=== PATIENT | female | born 1995 | race African-American/Black ===

== ENCOUNTER 2016-09-22 06:56 | Observation (INO) | payer MEDICAID, OTHER ==
[2016-09-22] MEDS ORDERED: IV RINGERS,LACTATED 1000ML 1,000 ML IV SCH (07:40)
[2016-09-22 07:52] LABS: BILIRUBIN,URINE NEGATIVE (NEG); GLUCOSE,URINE NEGATIVE (NEG); NITRITE,URINE NEGATIVE (NEG); PH,URINE 7.5; PROTEIN,URINE NEGATIVE (NEG-TRACE); UROBILINOGEN,URINE 0.2 mg/dL (0.2 mg/dL)
[2016-09-22 08:03] LABS: BACTERIA,URINE FEW /HPF (0-FEW); RBC,URINE OCC /HPF (0-2)
[2016-09-22 08:04] LABS: SQUAMOUS EPITHELIAL CELL,UR MOD /LPF
== END 2016-09-22 09:15 | disposition home or self-care (01) ==
LOC: 3 SO LND 06:56
PROVIDERS: ADMIT Obstetrics & Gynecology; ATTEND Obstetrics & Gynecology
DX: O26.893 Other specified pregnancy related conditions, third trimester (principal); R10.9 Unspecified abdominal pain; M54.9 Dorsalgia, unspecified; Z3A.00 Weeks of gestation of pregnancy not specified
CPT/HCPCS: 81001; 87086; G0378; G0379

== ENCOUNTER 2016-10-24 18:21 | Observation (INO) | payer OTHER ==
[2016-10-24 19:14] LABS: BILIRUBIN,URINE NEGATIVE (NEG); GLUCOSE,URINE NEGATIVE (NEG); NITRITE,URINE NEGATIVE (NEG); PH,URINE 6.5; PROTEIN,URINE NEGATIVE (NEG-TRACE); UROBILINOGEN,URINE 0.2 mg/dL (0.2 mg/dL)
[2016-10-24 19:20] LABS: BARBITURATES POS (NEG); BENZODIAZEPINES NEG (NEG); CANNABINOIDS NEG (NEG); COCAINE NEG (NEG); METHADONE NEG (NEG); OPIATES NEG (NEG); PHENCYCLIDINE NEG (NEG)
[2016-10-24 19:22] LABS: BACTERIA,URINE FEW /HPF (0-FEW); RBC,URINE 0 /HPF (0-2); SQUAMOUS EPITHELIAL CELL,UR MANY /LPF; WBC,URINE RARE /HPF (0-4)
== END 2016-10-24 20:15 | disposition home or self-care (01) ==
LOC: 3 SO LND 18:21
PROVIDERS: ADMIT Obstetrics & Gynecology; ATTEND Obstetrics & Gynecology
DX: O36.8130 Decreased fetal movements, third trimester, not applicable or unspecified (principal); Z3A.37 37 weeks gestation of pregnancy
CPT/HCPCS: 80307; 81001; G0378; G0379; 87086; G0479

== ENCOUNTER 2016-11-08 18:40 | Inpatient (IN) | payer OTHER ==
[~2016-11-08] VITALS: Ht 157.5 cm; Wt 106.1 kg
[2016-11-08] MEDS ORDERED: diphenhydrAMINE HCL 25 MG CAPSULE PO PRN (19:15)
[2016-11-08] MEDS ORDERED: LIDOCAINE 1% PF 30 ML VIAL. INJ PRN (19:15)
[2016-11-08] MEDS ORDERED: BUTORPHANOL 2 MG/ML VIAL. IV PRN (19:15)
[2016-11-08] MEDS ORDERED: OXYTOCIN 30 UNIT/500 ML PREMIX 500 ML IV PRN (19:15)
[2016-11-08] MEDS ORDERED: TERBUTALINE 1 MG/ML VIAL. SQ PRN (19:15)
[2016-11-08] MEDS ORDERED: ONDANSETRON PF 4 MG/2 ML VIAL. IV PRN (19:15)
[2016-11-08] MEDS ORDERED: fentaNYL PF VIAL 100 MCG/2 ML VIAL IV PRN (19:15)
[2016-11-08] MEDS ORDERED: 0.9 % SODIUM CHLORIDE 10 ML DISP.SYRIN. IV PRN (19:15)
[2016-11-08 19:24] VITALS: BP 131/73
[2016-11-08] MEDS: IV RINGERS,LACTATED 1000ML 1,000 ML IV SCH (19:25)
[2016-11-08 19:29] LABS: HEMATOCRIT 33.9 % (36.0-47.0); HEMOGLOBIN 10.9 g/dL (12.0-15.5); RED BLOOD COUNT 3.96 x10^6/uL (3.50-5.40); RED CELL DISTRIBUTION WIDTH 13.9 % (11.5-14.5); WHITE BLOOD COUNT 10.8 x10^3/uL (4.0-11.0)
[2016-11-08] MEDS ORDERED: PNEUMOCOCCAL VAX SCREEN BY RX. MC ONE (19:30)
[2016-11-08] MEDS ORDERED: DINOPROSTONE 10 MG SUPP.VAG VG ONE (19:30)
[2016-11-08] MEDS ORDERED: INFLUENZA VAX SCREEN BY RX. MC ONE (19:30)
[2016-11-08 20:17] LABS: BILIRUBIN,URINE NEGATIVE (NEG); GLUCOSE,URINE NEGATIVE (NEG); NITRITE,URINE NEGATIVE (NEG); PH,URINE 6.5; PROTEIN,URINE NEGATIVE (NEG-TRACE); UROBILINOGEN,URINE 0.2 mg/dL (0.2 mg/dL)
[2016-11-08 20:25] LABS: BARBITURATES POS (NEG); BENZODIAZEPINES NEG (NEG); CANNABINOIDS NEG (NEG); COCAINE NEG (NEG); METHADONE NEG (NEG); OPIATES NEG (NEG); PHENCYCLIDINE NEG (NEG)
[2016-11-08 20:33] LABS: BACTERIA,URINE MANY /HPF (0-FEW); RBC,URINE 0 /HPF (0-2); SQUAMOUS EPITHELIAL CELL,UR MANY /LPF
[2016-11-09] MEDS: IV RINGERS,LACTATED 1000ML 1,000 ML IV SCH ×2 (05:41→13:44)
--- NOTE | 2016-11-09 08:12 | PDOC1 ---
OB - History Hx of Present Care: Good Care Ultrasounds: Normal mid trimester US Obstetrical Complications: None Medical Complications: None Past Family/Social History * Past Medical, Surgical, Family and Obstetric Histories reviewed from chart. Rubella: Immune RPR/VDRL: Negative GBS Status: Negative HBsAG: Negative OB - Chief Complaint & HPI Date of Admission: Date of Admission: Nov 08, 2016 at 18:40 Chief Complaint/History : 1 Para: 0 EGA: 39 Reason for admission: induction of labor Indication for induction: maternal discomfort Admission Nurse Assessment Rev: Yes Problems: OB - Admission Exam Physical Exam Vitals: VS - Last 72 Hours, by Label Date Time Temp Pulse Resp B/P (MAP) Pulse Ox O2 Delivery O2 Flow Rate FiO2 11/09/16 07:31 18 Room Air 11/08/16 19:24 98.3 110 18 131/73 (92) Room Air 98.3 HEENT: Normal Heart: Regular Rate Lungs: Clear Abdomen: Gravid, Non tender, Soft Extremities: Edema Reflexes: Normal Cervical Dilatation: 1cm Effacement: 50% Station: -3 Membranes: Intact Heart Rate: Normal Accelerations: Accelerations Present Decelerations: No decelerations Contractions on Admission: >10 Minutes Apart Intensity: Mild Text A: 39 wks IUP IOL secondary maternal discomforts of P: Admit for cervidil overnight, then pitocin in am. CASE SHAW Jr, MD Nov 09, 2016 08:11
[2016-11-09] MEDS ORDERED: FLU VACC QS2017-18 (36MOS+)/PF 0.5 ML SYRINGE. VAX IM ONE (09:00)
[2016-11-09] MEDS ORDERED: PNEUMOC CONJ VACC 23-VALENT 0.5 ML VIAL. VAX IM ONE (09:00)
[2016-11-09] MEDS ORDERED: DINOPROSTONE 10 MG SUPP.VAG VG ONE (20:00)
[2016-11-09] MEDS: ACETAMINOPHEN 500 MG TABLET PO PRN (21:20)
[2016-11-10] MEDS ORDERED: OXYTOCIN 30 UNIT/500 ML PREMIX 500 ML IV PRN (05:00)
[2016-11-10 05:23] LABS: RPR REFLEX Non Reactive (Non Reactive)
[2016-11-10] MEDS: IV RINGERS,LACTATED 1000ML 1,000 ML IV SCH ×4 (05:52→19:19)
[2016-11-10] MEDS: OXYTOCIN 30 UNIT/500 ML PREMIX 500 ML IV PRN (05:53)
[2016-11-10] MEDS ORDERED: LIDOCAINE 2% PF Vial for OR 5 ML VIAL. ONE (14:48)
[2016-11-10] MEDS ORDERED: L&D EPIDURAL CASSETTE 100 ML EP ONE ×2 (15:37→21:18)
[2016-11-10] MEDS ORDERED: ePHEDrine PF IN SALINE 50 MG/5 ML DISP.SYRIN IV PRN (16:00)
[2016-11-10] MEDS ORDERED: ROPIVacaine 0.2% PF 10 ML VIAL. EPI ONE (16:00)
[2016-11-10] MEDS ORDERED: fentaNYL PF VIAL 100 MCG/2 ML VIAL EPI ONE (16:00)
[2016-11-10] MEDS ORDERED: NALOXONE 0.4 MG/ML VIAL. IV PRN (16:00)
[2016-11-10] MEDS ORDERED: ONDANSETRON PF 4 MG/2 ML VIAL. IV PRN (16:00)
--- NOTE | 2016-11-10 18:33 | PDOC ---
OB Progress Note Date of Service 11/10/16 Time of Evaluation 1830 Notes Pt. feeling well. SHe had pitocin yesterday and cervidil last night. Today, patient was started on pitocin in am. She had SROM consisting of clear fluid. Lab Laboratory Tests Test 11/08/16 19:17 11/08/16 20:00 White Blood Count 10.8 x10^3/uL (4.0-11.0) Red Blood Count 3.96 x10^6/uL (3.50-5.40) Hemoglobin 10.9 g/dL (12.0-15.5) Hematocrit 33.9 % (36.0-47.0) Mean Corpuscular Volume 86 fL (79-100) Mean Corpuscular Hemoglobin 28 pg (25-35) Mean Corpuscular Hemoglobin Concent 32 g/dL (31-37) Red Cell Distribution Width 13.9 % (11.5-14.5) Platelet Count 219 x10^3/uL (140-400) RPR Titer Additional Testing Non reactive (Non Reactive) Urine Collection Type Unknown Urine Color Yellow Urine Clarity Cloudy Urine pH 6.5 Urine Specific [place] 1.020 Urine Protein Negative mg/dL (NEG-TRACE) Urine Glucose (UA) Negative mg/dL (NEG) Urine Ketones (Stick) Negative mg/dL (NEG) Urine Blood Negative (NEG) Urine Nitrite Negative (NEG) Urine Bilirubin Negative (NEG) Urine Urobilinogen Dipstick 0.2 mg/dL (0.2 mg/dL) Urine Leukocyte Esterase Moderate (NEG) Urine RBC 0 /HPF (0-2) Urine WBC 1-4 /HPF (0-4) Urine Squamous Epithelial Cells Many /LPF Urine Bacteria Many /HPF (0-FEW) Urine Opiates Screen Neg (NEG) Urine Methadone Screen Neg (NEG) Urine Barbiturates Pos (NEG) Urine Phencyclidine Screen Neg (NEG) Urine Amphetamine/Methamphetamine Neg (NEG) Urine Benzodiazepines Screen Neg (NEG) Urine Cocaine Screen Neg (NEG) Urine Cannabinoids Screen Neg (NEG) Urine Ethyl Alcohol Neg (NEG) Medications Current Medications Sodium Chloride (Normal Saline Flush) 3 ml QSHIFT PRN IV AFTER MEDS AND BLOOD DRAWS; Start 11/08/16 at 19:15 Ringer's Solution 1,000 ml @ 125 mls/hr Q8H IV Last administered on 11/10/16 15:21; Start 11/08/16 at 19:08 Butorphanol Tartrate (Stadol) 2 mg PRN Q1HR PRN IV Severe labor pain Last administered on 11/10/16 13:00; Start 11/08/16 at 19:15 Fentanyl Citrate (Fentanyl 2ml Vial) 100 mcg PRN Q30MIN PRN IV Severe pain Last administered on 11/09/16 07:31; Start 11/08/16 at 19:15 Ondansetron HCl (Zofran) 4 mg PRN Q4HRS PRN IV NAUSEA/VOMITING; Start 11/08/16 at 19:15 Terbutaline Sulfate (Brethine) 0.25 mg 1X PRN PRN SQ SEE COMMENTS; Start at 19:15; Stop 11/09/16 at 19:14; Status DC Lidocaine HCl 30 ml 1X PRN PRN INJ SEE COMMENTS; Start 11/08/16 at 19:15; Stop 11/10/16 at 19:14 Oxytocin/Sodium Chloride 500 ml @ 0 mls/hr CONT PRN IV SEE I/O RECORD Last administered on 11/10/16 05:53; Start 11/09/16 at 06:00 Oxytocin/Sodium Chloride 500 ml @ 0 mls/hr CONT PRN PRN IV Post delivery bleeding; Start 11/08/16 at 19:15 Ibuprofen (Motrin) 600 mg PRN Q6HRS PRN PO PAIN; Start 11/08/16 at 19:15 Diphenhydramine HCl (Benadryl) 50 mg PRN QHS PRN PO INSOMNIA Last administered on 11/08/16 20:54; Start 11/08/16 at 19:15 Dinoprostone (Cervidil) 10 mg 1X ONCE VG Last administered on 11/08/16 19:38 ; Start 11/08/16 at 19:30; Stop 11/08/16 at 19:31; Status DC Info (Do NOT chart on this placeholder) 1 each 1X ONCE MC ; Start 11/08/16 at 19:30; Stop 11/08/16 at 19:31; Status UNV Pneumococcal Polyvalent Vaccine (Do NOT chart on this placeholder) 1 each 1X ONCE MC ; Start 11/08/16 at 19:30; Stop 11/08/16 at 19:31; Status UNV Influenza Virus Vaccine Quadrival (Fluarix Quad [id number] Syringe) 0.5 ml ONCE ONCE VAX IM ; Start 11/09/16 at 09:00; Stop 11/09/16 at 09:01; Status DC Pneumococcal Polyvalent Vaccine (Pneumovax 23) 0.5 ml ONCE ONCE VAX IM ; Start 11/09/16 at 09:00; Stop 11/09/16 at 09:01; Status DC Dinoprostone (Cervidil) 10 mg 1X ONCE VG Last administered on 11/09/16 20:22 ; Start 11/09/16 at 20:00; Stop 11/09/16 at 20:01; Status DC Oxytocin/Sodium Chloride 500 ml @ 0 mls/hr CONT PRN IV SEE I/O RECORD; Start at 05:00 Acetaminophen (Tylenol) 1,000 mg PRN Q6HRS PRN PO MILD PAIN / TEMP Last administered on 11/09/16 21:20; Start 11/09/16 at 21:00 Lidocaine HCl (Lidocaine Pf 2% Vial) 5 ml STK-MED ONCE .ROUTE ; Start 11/10/16 at 14:48; Stop 11/10/16 at 14:49; Status DC Ropivacaine/ Fentanyl/NS 100 ml @ As Directed STK-MED ONCE EP ; Start 11/10/16 at 15:37; Stop 11/10/16 at 15:38; Status DC Ephedrine Sulfate 10 mg PRN Q2MIN PRN IV IF SBP<90; Start 11/10/16 at 16:00 Naloxone HCl (Narcan) 0.04 mg PRN Q1MIN PRN IV SEE COMMENTS; Start 11/10/16 at 16:00 Fentanyl Citrate (Fentanyl 2ml Vial) 100 mcg 1X ONCE EPI ; Start 11/10/16 at 16 :00; Stop 11/10/16 at 16:01; Status DC Ondansetron HCl (Zofran) 4 mg PRN Q6HRS PRN IV NAUSEA/VOMITING; Start 11/10/16 at 16:00 Ropivacaine (Naropin 0.2%) 20 ml 1X ONCE EPI ; Start 11/10/16 at 16:00; Stop at 16:01; Status DC Exam Abd: soft, non tender, fundus non tender Pelvic: 2/90/-2 IUPC placed without difficulty. Pitocin at 18 milliUnits/min. Assessment 39 wks IUP IOL secondary maternal discomforts Plan of Care: Continue current Tx, Mgmt CASE SHAW Jr, MD Nov 10, 2016 18:33
[2016-11-10] MEDS: L&D EPIDURAL CASSETTE 100 ML EP PRN (21:20)
[2016-11-10] MEDS ORDERED: NORMAL SALINE IV SCH (22:00)
[2016-11-10] MEDS ORDERED: AMPICILLIN SODIUM 2 GM in IV NORMAL SALINE 100ML 100 ML IV ONE (22:00)
[2016-11-10] MEDS ORDERED: GENTAMICIN SULFATE IV SCH (22:00)
[2016-11-11] MEDS: GENTAMICIN PER PHARMACY. MC PRN ×3 (02:00→17:00)
[2016-11-11] MEDS: OXYTOCIN 30 UNIT/500 ML PREMIX 500 ML IV PRN ×3 (02:07→19:26)
[2016-11-11] MEDS: AMPICILLIN SODIUM 1 GM in IV NORMAL SALINE 50ML 50 ML IV SCH ×3 (02:07→10:13)
[2016-11-11] MEDS: IV RINGERS,LACTATED 1000ML 1,000 ML IV SCH (03:34)
[2016-11-11] MEDS ORDERED: L&D EPIDURAL CASSETTE 100 ML EP ONE (04:01)
[2016-11-11] MEDS: L&D EPIDURAL CASSETTE 100 ML EP PRN ×2 (04:13→09:04)
[2016-11-11] MEDS ORDERED: IV RINGERS,LACTATED 1000ML 1,000 ML IV SCH ×2 (07:08→07:17)
[2016-11-11] MEDS ORDERED: NALOXONE 0.4 MG/ML VIAL. IV PRN ×2 (07:15→07:30)
[2016-11-11] MEDS ORDERED: ROPIVacaine 0.2% IN 0.9%NACL PF 40 MG/20 ML DISP.SYRIN. EPI PRN ×2 (07:15→07:30)
[2016-11-11] MEDS ORDERED: ePHEDrine PF IN SALINE 50 MG/5 ML DISP.SYRIN IV PRN (07:15)
[2016-11-11] MEDS ORDERED: fentaNYL PF VIAL 100 MCG/2 ML VIAL EPI PRN (07:30)
[2016-11-11] MEDS ORDERED: BUPIVACAINE MPF 0.25% 10 ML VIAL. EPI PRN (07:30)
[2016-11-11] MEDS ORDERED: L&D EPIDURAL CASSETTE 100 ML EP PRN (07:30)
--- NOTE | 2016-11-11 14:29 | PDOC ---
VAGINAL DELIVERY DATE DATE: 11/11/16 TIME: 14:26 : 1 Para: 1 EGA: 39 VAGINAL DELIVERY: VTX VACCUM ASSISTED: Yes NUMBER OF PULLS 5 NUMBER OF POP OFFS none MAXIMUM PRESSURE 600 mmhg PLACENTA: Spontaneous pending SEX: Male WEIGHT Weight [pending ] Nuchal Cord: Yes, Times 1 Amniotic Fluid: Clear PAIN: Epidural EPISIOTOMY: No EXTENSION: Yes (Left vaginal sidewall laceration) REPAIRED WITH 2-0 vicryl EBL 300 ml COMPLICATIONS none CONDITION pt. stable Signs of Intrauterine Infectio: Temp >100.4, Uterine tenderness Shoulder Dystocia: No, Katherine Maneuver, Suprapubic Pressure Problems: CASE SHAW Jr, MD Nov 11, 2016 14:29
[2016-11-11] MEDS ORDERED: NORMAL SALINE IV SCH (14:30)
[2016-11-11] MEDS ORDERED: ZOLPIDEM 5 MG TABLET. PO PRN (14:30)
[2016-11-11] MEDS ORDERED: GENTAMICIN SULFATE IV SCH (14:30)
[2016-11-11] MEDS ORDERED: diphenhydrAMINE ORAL ELIXIR 12.5 MG/5 ML ML PO PRN (14:30)
[2016-11-11] MEDS ORDERED: KETOROLAC 30 MG/ML INJ. IV PRN (14:30)
[2016-11-11] MEDS ORDERED: MAG HYDROX/ALUMINUM HYD/SIMETH 30 ML ORAL.SUSP PO PRN (14:30)
[2016-11-11] MEDS ORDERED: OXYTOCIN 30 UNIT/500 ML PREMIX 500 ML IV PRN (14:30)
[2016-11-11] MEDS ORDERED: 0.9 % SODIUM CHLORIDE 10 ML DISP.SYRIN. IV PRN (14:30)
[2016-11-11] MEDS ORDERED: ONDANSETRON PF 4 MG/2 ML VIAL. IV PRN (14:30)
[2016-11-11] MEDS: IBUPROFEN 600 MG TABLET. PO PRN (14:48)
[2016-11-11] MEDS ORDERED: AMPICILLIN SODIUM 2 GM in IV NORMAL SALINE 100ML 100 ML IV SCH (16:00)
[2016-11-11 16:37] VITALS: BP 112/68
[2016-11-11] MEDS: oxyCODONE/APAP 5/325 1 TAB TABLET PO PRN ×3 (16:42→21:05)
[2016-11-11 17:25] VITALS: BP 136/93
[2016-11-11] MEDS ORDERED: miSOPROStol 200MCG TAB 200 MCG TABLET VG ONE (17:30)
[2016-11-11 18:00] VITALS: BP 127/82
[2016-11-11 18:31] VITALS: BP 115/76
[2016-11-11] MEDS: IBUPROFEN 800 MG TABLET. PO PRN (21:04)
[2016-11-11 22:00] VITALS: BP 119/74
[2016-11-11] MEDS ORDERED: GENTAMICIN SULFATE 80 MG in IV NORMAL SALINE 100ML 100 ML IV SCH (22:00)
[2016-11-12] MEDS ORDERED: BENZOCAINE 20% TOPICAL AEROSOL SPRAY 57GM CAN. TP PRN (00:45)
[2016-11-12 00:54] VITALS: BP 104/63
[2016-11-12] MEDS: AMPICILLIN SODIUM 2 GM in IV NORMAL SALINE 100ML 100 ML IV SCH ×5 (04:14→21:15)
[2016-11-12] MEDS: oxyCODONE/APAP 5/325 1 TAB TABLET PO PRN ×5 (04:30→23:52)
[2016-11-12] MEDS: DOCUSATE SODIUM 100 MG CAPSULE. PO PRN (04:30)
[2016-11-12] MEDS: IBUPROFEN 800 MG TABLET. PO PRN ×3 (04:30→21:15)
[2016-11-12] MEDS: NORMAL SALINE IV SCH (04:52)
[2016-11-12] MEDS: GENTAMICIN SULFATE IV SCH (04:52)
[2016-11-12 05:31] VITALS: BP 106/67
[2016-11-12 07:16] LABS: BASO % 0 % (0-3); EOS % 1 % (0-3); HEMATOCRIT 24.9 % (36.0-47.0); HEMOGLOBIN 8.1 g/dL (12.0-15.5); LYMPH # 2.5 x10^3/uL (1.0-4.8); LYMPH % 18 % (24-48); MEAN CORPUSCULAR HEMOGLOBIN 28 pg (25-35); MEAN CORPUSCULAR HGB CONC 33 g/dL (31-37); MEAN CORPUSCULAR VOLUME 85 fL (79-100); MONO % 8 % (0-9); NEUT % 72 % (31-73); PLATELET COUNT 177 x10^3/uL (140-400); RED BLOOD COUNT 2.93 x10^6/uL (3.50-5.40); WHITE BLOOD COUNT 13.7 x10^3/uL (4.0-11.0)
[2016-11-12] MEDS: FERROUS SULFATE 325 MG TABLET. PO SCH ×2 (08:52→19:29)
[2016-11-12 09:15] VITALS: BP 100/62
[2016-11-12] MEDS ORDERED: GENTAMICIN TROUGH LEVEL. MC ONE (15:00)
[2016-11-12] MEDS: SIMETHICONE 80 MG TAB.CHEW PO PRN ×2 (15:13→18:35)
[2016-11-12 15:24] LABS: GENT TR 1.2 mcg/mL (0.0-2.0)
[2016-11-12] MEDS ORDERED: DIPHTH,PERTUSS(ACELL),TET TOX 0.5 ML DISP.SYRIN. VAX IM ONE (16:30)
[2016-11-12] MEDS: GENTAMICIN PER PHARMACY. MC PRN (16:31)
--- NOTE | 2016-11-12 18:45 | PDOC ---
Provider Note Provider Note No complaints VSS uterus NTTP Hgb 8.1 On iron FU Elizabeth Vital Sign - Last 24 Hours 11/11/16 11/12/16 11/12/16 11/12/16 22:00 00:54 05:31 08:52 Temp 98.0 97.9 98.5 98.0 97.9 98.5 Pulse 93 91 94 Resp 20 20 20 20 B/P (MAP) 119/74 (89) 104/63 (77) 106/67 (80) Pulse Ox 99 97 O2 Delivery Room Air Room Air Room Air 11/12/16 11/12/16 11/12/16 09:15 15:13 16:15 Temp 97.7 97.7 Pulse 93 Resp 20 18 18 B/P (MAP) 100/62 (75) Pulse Ox 98 O2 Delivery Room Air Room Air Intake and Output 11/12/16 11/12/16 11/13/16 15:00 23:00 07:00 Intake Total 100 ml 1000 ml Balance 100 ml 1000 ml CBC - BMP 11/12/16 07:00 JOSE SEPULVEDA MD Nov 12, 2016 18:45
[2016-11-12 21:10] VITALS: BP 103/69
[2016-11-13] MEDS: AMPICILLIN SODIUM 2 GM in IV NORMAL SALINE 100ML 100 ML IV SCH ×2 (00:41→05:12)
[2016-11-13 05:15] VITALS: BP 105/71
[2016-11-13] MEDS: IBUPROFEN 800 MG TABLET. PO PRN (05:17)
[2016-11-13] MEDS: oxyCODONE/APAP 5/325 1 TAB TABLET PO PRN (05:17)
[2016-11-13] MEDS: NORMAL SALINE IV SCH (05:43)
[2016-11-13] MEDS: GENTAMICIN SULFATE IV SCH (05:43)
[2016-11-13] MEDS: DOCUSATE SODIUM 100 MG CAPSULE. PO PRN (09:20)
[2016-11-13] MEDS: FERROUS SULFATE 325 MG TABLET. PO SCH (09:20)
[2016-11-13] MEDS: IBUPROFEN 600 MG TABLET. PO PRN (09:20)
--- NOTE | 2016-11-13 10:23 | PDOC ---
OB Progress Note Date of Service 11/13/16 Time of Evaluation 1020 Notes Pt. feeling well. Pain controlled. No complaints. Lab Laboratory Tests Test 11/12/16 07:00 11/12/16 15:00 White Blood Count 13.7 x10^3/uL (4.0-11.0) Red Blood Count 2.93 x10^6/uL (3.50-5.40) Hemoglobin 8.1 g/dL (12.0-15.5) Hematocrit 24.9 % (36.0-47.0) Mean Corpuscular Volume 85 fL (79-100) Mean Corpuscular Hemoglobin 28 pg (25-35) Mean Corpuscular Hemoglobin Concent 33 g/dL (31-37) Red Cell Distribution Width 14.0 % (11.5-14.5) Platelet Count 177 x10^3/uL (140-400) Neutrophils (%) (Auto) 72 % (31-73) Lymphocytes (%) (Auto) 18 % (24-48) Monocytes (%) (Auto) 8 % (0-9) Eosinophils (%) (Auto) 1 % (0-3) Basophils (%) (Auto) 0 % (0-3) Neutrophils # (Auto) 9.9 x10^3uL (1.8-7.7) Lymphocytes # (Auto) 2.5 x10^3/uL (1.0-4.8) Monocytes # (Auto) 1.1 x10^3/uL (0.0-1.1) Eosinophils # (Auto) 0.2 x10^3/uL (0.0-0.7) Basophils # (Auto) 0.0 x10^3/uL (0.0-0.2) Gentamicin Level Trough 1.2 mcg/mL (0.0-2.0) Gentamicin Last Dose Date 11/12/16 Gentamicin Last Dose Time 0500 Laboratory Tests Test 11/12/16 15:00 Gentamicin Level Trough 1.2 mcg/mL (0.0-2.0) Gentamicin Last Dose Date 11/12/16 Gentamicin Last Dose Time 0500 Medications Current Medications Sodium Chloride (Normal Saline Flush) 3 ml QSHIFT PRN IV AFTER MEDS AND BLOOD DRAWS; Start 11/08/16 at 19:15 Ringer's Solution 1,000 ml @ 125 mls/hr Q8H IV Last administered on 11/11/16 03:34; Start 11/08/16 at 19:08; Stop 11/12/16 at 00:39; Status DC Butorphanol Tartrate (Stadol) 2 mg PRN Q1HR PRN IV Severe labor pain Last administered on 11/10/16 13:00; Start 11/08/16 at 19:15 Fentanyl Citrate (Fentanyl 2ml Vial) 100 mcg PRN Q30MIN PRN IV Severe pain Last administered on 11/09/16 07:31; Start 11/08/16 at 19:15 Ondansetron HCl (Zofran) 4 mg PRN Q4HRS PRN IV NAUSEA/VOMITING Last administered on 11/11/16 04:38; Start 11/08/16 at 19:15 Terbutaline Sulfate (Brethine) 0.25 mg 1X PRN PRN SQ SEE COMMENTS; Start at 19:15; Stop 11/09/16 at 19:14; Status DC Lidocaine HCl 30 ml 1X PRN PRN INJ SEE COMMENTS; Start 11/08/16 at 19:15; Stop 11/10/16 at 19:14; Status DC Oxytocin/Sodium Chloride 500 ml @ 0 mls/hr CONT PRN IV SEE I/O RECORD Last administered on 11/11/16 19:26; Start 11/09/16 at 06:00 Oxytocin/Sodium Chloride 500 ml @ 0 mls/hr CONT PRN PRN IV Post delivery bleeding; Start 11/08/16 at 19:15 Ibuprofen (Motrin) 600 mg PRN Q6HRS PRN PO PAIN Last administered on 11/13/16 09:20; Start 11/08/16 at 19:15 Diphenhydramine HCl (Benadryl) 50 mg PRN QHS PRN PO INSOMNIA Last administered on 11/08/16 20:54; Start 11/08/16 at 19:15 Dinoprostone (Cervidil) 10 mg 1X ONCE VG Last administered on 11/08/16 19:38 ; Start 11/08/16 at 19:30; Stop 11/08/16 at 19:31; Status DC Info (Do NOT chart on this placeholder) 1 each 1X ONCE MC ; Start 11/08/16 at 19:30; Stop 11/08/16 at 19:31; Status UNV Pneumococcal Polyvalent Vaccine (Do NOT chart on this placeholder) 1 each 1X ONCE MC ; Start 11/08/16 at 19:30; Stop 11/08/16 at 19:31; Status UNV Influenza Virus Vaccine Quadrival (Fluarix Quad [id number] Syringe) 0.5 ml ONCE ONCE VAX IM Last administered on 11/12/16 17:21; Start 11/09/16 at 09:00; Stop 11/09/16 at 09:01; Status DC Pneumococcal Polyvalent Vaccine (Pneumovax 23) 0.5 ml ONCE ONCE VAX IM Last administered on 11/12/16 17:19; Start 11/09/16 at 09:00; Stop 11/09/16 at 09:01 ; Status DC Dinoprostone (Cervidil) 10 mg 1X ONCE VG Last administered on 11/09/16 20:22 ; Start 11/09/16 at 20:00; Stop 11/09/16 at 20:01; Status DC Oxytocin/Sodium Chloride 500 ml @ 0 mls/hr CONT PRN IV SEE I/O RECORD; Start at 05:00 Acetaminophen (Tylenol) 1,000 mg PRN Q6HRS PRN PO MILD PAIN / TEMP Last administered on 11/09/16 21:20; Start 11/09/16 at 21:00 Lidocaine HCl (Lidocaine Pf 2% Vial) 5 ml STK-MED ONCE .ROUTE ; Start 11/10/16 at 14:48; Stop 11/10/16 at 14:49; Status DC Ropivacaine/ Fentanyl/NS 100 ml @ As Directed STK-MED ONCE EP ; Start 11/10/16 at 15:37; Stop 11/10/16 at 15:38; Status DC Ephedrine Sulfate 10 mg PRN Q2MIN PRN IV IF SBP<90; Start 11/10/16 at 16:00; Status Cancel Naloxone HCl (Narcan) 0.04 mg PRN Q1MIN PRN IV SEE COMMENTS; Start 11/10/16 at 16:00; Status Cancel Fentanyl Citrate (Fentanyl 2ml Vial) 100 mcg 1X ONCE EPI ; Start 11/10/16 at 16 :00; Stop 11/10/16 at 16:01; Status DC Ondansetron HCl (Zofran) 4 mg PRN Q6HRS PRN IV NAUSEA/VOMITING; Start 11/10/16 at 16:00; Stop 11/11/16 at 17:03; Status DC Ropivacaine (Naropin 0.2%) 20 ml 1X ONCE EPI ; Start 11/10/16 at 16:00; Stop at 16:01; Status DC Ropivacaine/ Fentanyl/NS 100 ml @ As Directed STK-MED ONCE EP ; Start 11/10/16 at 21:18; Stop 11/10/16 at 21:19; Status DC Gentamicin Sulfate 1 each PRN DAILY PRN MC INFECTION Last administered on 16:31; Start 11/10/16 at 22:00 Ampicillin Sodium 2 gm/Sodium Chloride 100 ml @ 200 mls/hr 1X ONCE IV Last administered on 11/10/16 22:00; Start 11/10/16 at 22:00; Stop 11/10/16 at 22:29 ; Status DC Ampicillin Sodium 1 gm/Sodium Chloride 50 ml @ 100 mls/hr Q4H IV Last administered on 11/11/16 10:13; Start 11/11/16 at 02:00; Stop 11/11/16 at 16:42 ; Status DC Gentamicin Sulfate 360 mg/ Sodium Chloride 109 ml @ 109 mls/hr Q24H IV Last administered on 11/10/16 22:58; Start 11/10/16 at 22:00; Stop 11/11/16 at 03:01 ; Status DC Gentamicin Sulfate 80 mg/ Sodium Chloride 100 ml @ 200 mls/hr Q8HRS IV ; Start 11/11/16 at 22:00; Status Cancel Ropivacaine/ Fentanyl/NS 100 ml @ As Directed STK-MED ONCE EP ; Start 11/11/16 at 04:01; Stop 11/11/16 at 04:02; Status DC Ropivacaine/ Fentanyl/NS 100 ml @ 14 mls/hr CONT PRN EP PAIN Last administered on 11/11/16 09:04; Start 11/11/16 at 07:15; Stop 11/12/16 at 05:34 ; Status DC Ringer's Solution 1,000 ml @ 125 mls/hr Q8H IV Last administered on 11/11/16 10:13; Start 11/11/16 at 07:08; Stop 11/12/16 at 05:34; Status DC Ephedrine Sulfate 10 mg PRN Q2MIN PRN IV IF SBP<90; Start 11/11/16 at 07:15; Stop 11/12/16 at 05:34; Status DC Naloxone HCl (Narcan) 0.04 mg PRN Q1MIN PRN IV SEE COMMENTS; Start 11/11/16 at 07:15; Stop 11/11/16 at 17:03; Status DC Ropivacaine/ Sodium Chloride 40 mg PRN 1X PRN EPI SEE COMMENTS; Start 11/11/16 at 07:15; Stop 11/12/16 at 05:34; Status DC Ringer's Solution 1,000 ml @ 1,000 mls/hr Q1H IV ; Start 11/11/16 at 07:17; Stop 11/11/16 at 08:16; Status DC Naloxone HCl (Narcan) 0.04 mg PRN Q1MIN PRN IV SEE COMMENTS; Start 11/11/16 at 07:30 Fentanyl Citrate (Fentanyl 2ml Vial) 100 mcg PRN 1X PRN EPI FOR ANESTHESIA; Start 11/11/16 at 07:30; Stop 11/12/16 at 07:29; Status DC Bupivacaine HCl (Sensorcaine-Mpf 0.25%) 10 ml PRN 1X PRN EPI FOR ANESTHESIA; Start 11/11/16 at 07:30; Stop 11/12/16 at 07:29; Status DC Ropivacaine/ Fentanyl/NS 100 ml @ 0 mls/hr CONT PRN EP PAIN; Start 11/11/16 at 07:30 Ropivacaine/ Sodium Chloride 40 mg PRN 1X PRN EPI SEE COMMENTS; Start 11/11/16 at 07:30; Stop 11/12/16 at 07:17; Status DC Sodium Chloride (Normal Saline Flush) 3 ml QSHIFT PRN IV AFTER MEDS AND BLOOD DRAWS; Start 11/11/16 at 14:30 Oxytocin/Sodium Chloride 500 ml @ 125 mls/hr CONT PRN IV EXCESSIVE POST- BLEEDING; Start 11/11/16 at 14:30; Stop 11/11/16 at 22:29; Status DC Ibuprofen (Motrin) 800 mg PRN Q8HRS PRN PO INFLAMMATION Last administered on t 05:17; Start 11/11/16 at 14:30 Ondansetron HCl (Zofran) 4 mg PRN Q6HRS PRN IV NAUSEA/VOMITING; Start 11/11/16 at 14:30 Docusate Sodium (Colace) 100 mg PRN BID PRN PO CONSTIPATION Last administered on 11/13/16 09:20; Start 11/11/16 at 14:30 Al Hydroxide/Mg Hydroxide (Mylanta Plus Xs) 30 ml PRN Q4HRS PRN PO HEARTBURN / GAS; Start 11/11/16 at 14:30 Simethicone (Gas-X) 80 mg PRN AFTMEALHC PRN PO GAS / BLOATING Last administered on 11/12/16 18:35; Start 11/11/16 at 14:30 Diphenhydramine HCl (Benadryl Oral Elixir) 12.5 mg PRN Q6HRS PRN PO ITCHING; Start 11/11/16 at 14:30 Ferrous Sulfate (Feosol) 325 mg BIDWMEALS PO Last administered on 11/13/16 09: 20; Start 11/11/16 at 17:00 Zolpidem Tartrate (Ambien) 5 mg PRN QHS PRN PO INSOMNIA, MAY REPEAT X1; Start 11/11/16 at 14:30 Oxycodone/ Acetaminophen (Percocet 5/325) 2 tab PRN Q4HRS PRN PO MODERATE PAIN , SEVERE PAIN Last administered on 11/13/16 05:17; Start 11/11/16 at 14:30 Ketorolac Tromethamine (Toradol) 30 mg PRN Q6HRS PRN IV PAIN; Start 11/11/16 at 14:30; Stop 11/16/16 at 14:29 Ampicillin Sodium 2 gm/Sodium Chloride 100 ml @ 200 mls/hr Q4HRS IV ; Start at 16:00; Stop 11/12/16 at 00:39; Status DC Gentamicin Sulfate 250 mg/ Sodium Chloride 106.25 ml @ 106.25 mls/hr Q24H IV ; Start 11/11/16 at 14:30; Stop 11/11/16 at 16:45; Status DC Gentamicin Sulfate 250 mg/ Sodium Chloride 106.25 ml @ 106.25 mls/hr Q24H IV Last administered on 11/13/16 05:43; Start 11/11/16 at 22:00 Gentamicin Sulfate 1 each 1X ONCE MC Last administered on 11/12/16 15:00; Start 11/12/16 at 15:00; Stop 11/12/16 at 15:01; Status DC Misoprostol (Cytotec 200mcg Tab) 400 mcg 1X ONCE VG Last administered on 17:43; Start 11/11/16 at 17:30; Stop 11/11/16 at 17:31; Status DC Benzocaine (Americaine) 1 spray PRN Q4HRS PRN TP PAIN Last administered on 11/12 00:50; Start 11/12/16 at 00:45 Ampicillin Sodium 2 gm/Sodium Chloride 100 ml @ 200 mls/hr Q4HRS IV Last administered on 11/13/16 05:12; Start 11/12/16 at 04:00 Diphtheria/ Tetanus/Acell Pertussis (Boostrix) 0.5 ml ONCE ONCE VAX IM Last administered on 11/12/16 17:18; Start 11/12/16 at 16:30; Stop 11/12/16 at 16:31 ; Status DC Exam Abd: soft, non tender, fundus firm Assessment PPD#2 s/p Chorioamnionitis: resolved. Plan of Care: See new orders (D/ c home. Pt. to room in .) CASE SHAW Jr, MD Nov 13, 2016 10:23
--- NOTE | 2016-11-13 10:23 | DISCH ---
DISCHARGE INSTRUCTIONS Condition on Discharge Condition on Discharge: Stable Activity After Discharge Activity Instructions for Disc: Activity as tolerated Lifting Instructions after Dis: No heavy lifting Driving Instructions after Dis: Do not drive today Diet after Discharge Diet after Discharge: Regular Contacting the DRLamin after DC Call your doctor for: Concerns you may have Follow-Up Follow up with: Dr. Arechiga in 6 weeks. CASE ARECHIGA Jr, MD Nov 13, 2016 10:23
[2016-11-13] MEDS ORDERED: IBUP-1060 PO (10:24)
[2016-11-13] MEDS ORDERED: OXYC-323 PO (10:24)
[2016-11-13] MEDS ORDERED: DOCU-109 PO (10:24)
[2016-11-13] MEDS: ACETAMINOPHEN 500 MG TABLET PO PRN (10:45)
== END 2016-11-13 13:30 | disposition home or self-care (01) | DRG 775 ==
LOC: 3 SO LND 18:40 → 3 NORTH 11-11 16:35
PROVIDERS: ADMIT Obstetrics & Gynecology; ATTEND Obstetrics & Gynecology
PROC: 10D07Z6 Extraction of Products of Conception, Vacuum, Via Natural or Artificial Opening (ICD-10-PCS; principal; 2016-11-08)
PROC: 0UQGXZZ Repair Vagina, External Approach (ICD-10-PCS; 2016-11-08)
DX: O41.1230 Chorioamnionitis, third trimester, not applicable or unspecified (principal); O71.4 Obstetric high vaginal laceration alone; O69.81X0 Labor and delivery complicated by cord around neck, without compression, not applicable or unspecified; Z37.0 Single live birth; Z3A.39 39 weeks gestation of pregnancy; O26.893 Other specified pregnancy related conditions, third trimester
CPT/HCPCS: 36415; 80170; 80307; 81001; 85025; 85027; 86593; 86850; 86900; 86901; 87086; 90686; 90715; 90732; J0290; J1580; J2405; J2590; J3010; J7120; Q0163; G0479

== ENCOUNTER 2017-06-20 17:25 | Emergency (ER) | payer OTHER ==
[2017-06-20 17:46] LABS: URINE HCG POC HCG POSITIVE (Negative)
[2017-06-20 17:50] LABS: BILIRUBIN,URINE NEGATIVE (NEG); CLARITY,URINE CLEAR; COLOR,URINE YELLOW; GLUCOSE,URINE NEGATIVE (NEG); NITRITE,URINE NEGATIVE (NEG); PROTEIN,URINE 30 mg/dL (NEG-TRACE); UROBILINOGEN,URINE 0.2 mg/dL (0.2 mg/dL)
[2017-06-20] MEDS: CYCLOBENZAPRINE 10 MG TABLET. PO (17:58)
[2017-06-20 18:09] LABS: BACTERIA,URINE FEW /HPF (0-FEW); RBC,URINE OCC /HPF (0-2); SQUAMOUS EPITHELIAL CELL,UR MOD /LPF; WBC,URINE OCC /HPF (0-4)
== END 2017-06-20 18:24 | disposition home or self-care (01) ==
LOC: ER 17:25
DX: O26.891 Other specified pregnancy related conditions, first trimester (principal); O99.331 Smoking (tobacco) complicating pregnancy, first trimester; O99.511 Diseases of the respiratory system complicating pregnancy, first trimester; J45.909 Unspecified asthma, uncomplicated; M54.31 Sciatica, right side; F17.210 Nicotine dependence, cigarettes, uncomplicated; Z3A.01 Less than 8 weeks gestation of pregnancy
CPT/HCPCS: 81001; 81025; 99283

== ENCOUNTER 2017-06-27 14:56 | Emergency (ER) | payer OTHER ==
[2017-06-27 15:28] LABS: URINE HCG POC HCG POSITIVE (Negative)
[2017-06-27 15:47] LABS: BILIRUBIN,URINE NEGATIVE (NEG); CLARITY,URINE CLEAR; COLOR,URINE YELLOW; GLUCOSE,URINE NEGATIVE (NEG); NITRITE,URINE NEGATIVE (NEG); PROTEIN,URINE NEGATIVE (NEG-TRACE)
[2017-06-27 16:09] LABS: ADD MAN DIFF? NO
[2017-06-27 16:15] LABS: BASO # 0.1 x10^3/uL (0.0-0.2); BASO % 1 % (0-3); EOS % 0 % (0-3); HEMATOCRIT 36.1 % (36.0-47.0); HEMOGLOBIN 11.7 g/dL (12.0-15.5); LYMPH # 1.8 x10^3/uL (1.0-4.8); LYMPH % 16 % (24-48); MEAN CORPUSCULAR HEMOGLOBIN 27 pg (25-35); MEAN CORPUSCULAR HGB CONC 32 g/dL (31-37); MEAN CORPUSCULAR VOLUME 83 fL (79-100); MONO # 0.8 x10^3/uL (0.0-1.1); MONO % 7 % (0-9); NEUT # 8.5 x10^3uL (1.8-7.7); NEUT % 76 % (31-73); PLATELET COUNT 296 x10^3/uL (140-400); RED BLOOD COUNT 4.37 x10^6/uL (3.50-5.40); WHITE BLOOD COUNT 11.2 x10^3/uL (4.0-11.0)
[2017-06-27 16:18] LABS: BACTERIA,URINE FEW /HPF (0-FEW); RBC,URINE OCC /HPF (0-2); SQUAMOUS EPITHELIAL CELL,UR MOD /LPF
[2017-06-27 16:21] LABS: ANION GAP 7 (6-14); BLOOD UREA NITROGEN 10 mg/dL (7-20); BUN/CREATININE RATIO 14 (6-20); CALCIUM 8.8 mg/dL (8.5-10.1); CARBON DIOXIDE 26 mmol/L (21-32); CHLORIDE 104 mmol/L (98-107); CREATININE 0.7 mg/dL (0.6-1.0); GFR 125.5; GLUCOSE 100 mg/dL (70-99); POTASSIUM 3.7 mmol/L (3.5-5.1); SODIUM 137 mmol/L (136-145)
[2017-06-27 16:28] LABS: ALBUMIN 3.2 g/dL (3.4-5.0); ALBUMIN/GLOBULIN RATIO 0.9 (1.0-1.7); ALK PHOS 47 U/L (46-116); ALT (SGPT) 14 U/L (14-59); AST (SGOT) 9 U/L (15-37); TOTAL BILIRUBIN 0.2 mg/dL (0.2-1.0); TOTAL PROTEIN 6.8 g/dL (6.4-8.2)
[2017-06-28 14:36] LABS: CHLAMYDIA PROBE Negative (Negative); GC PROBE Negative (Negative)
== END 2017-06-27 17:33 | disposition home or self-care (01) ==
LOC: ER 14:56
DX: O20.0 Threatened abortion (principal); O23.41 Unspecified infection of urinary tract in pregnancy, first trimester; O23.591 Infection of other part of genital tract in pregnancy, first trimester; N76.0 Acute vaginitis; B96.89 Other specified bacterial agents as the cause of diseases classified elsewhere; O46.8X1 Other antepartum hemorrhage, first trimester; O99.511 Diseases of the respiratory system complicating pregnancy, first trimester; J45.909 Unspecified asthma, uncomplicated; O99.331 Smoking (tobacco) complicating pregnancy, first trimester; F17.210 Nicotine dependence, cigarettes, uncomplicated; Z3A.09 9 weeks gestation of pregnancy
CPT/HCPCS: 36415; 76801; 80053; 81001; 81025; 84702; 85025; 86850; 86900; 86901; 87086; 87491; 87591; 99285-25; Q0111

== ENCOUNTER 2017-10-28 21:38 | Emergency (ER) | payer OTHER ==
[~2017-10-28] VITALS: Ht 157.5 cm; Wt 90.7 kg
[~2017-10-28 21:38] MED LIST: CEPH500T PO; CYCL10TA2 PO; DOCU-109 PO; HYDR-971 PO; IBUP-1060 PO; METH4TAB2 PO; METR500T PO; OXYC-323 PO; PNV1TABL25 PO
[2017-10-28 22:00] VITALS: BP 111/59
[2017-10-28 23:12] LABS: U PREG PATIENT POSITIVE (NEG)
[2017-10-28] MEDS ORDERED: IV NORMAL SALINE 1000ML BAG 1,000 ML IV ONE (23:30)
--- NOTE | 2017-10-28 23:42 | PHYS DOC ---
Past Medical History Past Medical History: Asthma, Sciatica Past Surgical History: No Surgical History Alcohol Use: None Drug Use: None Adult General Chief Complaint Chief Complaint: HEADACHE HPI HPI Patient is a 22 year old female who presents to the ER with complaints of a posterior headache for the last 2 days. Pt states she has a history of these headaches and that her primary care doctor, Dr. Arechiga, has prescribed her fiorcet for relief of the pain. Pt states that at first this medication helped to relieve her symptoms but it is not currently helping. Pt states she is currently , her LMP was 04/22/17, she is due in January. She denies any abdominal pain, back pain, pelvic pain, or vaginal complaints. Pt denies any vision changes, photosensitivity, dizziness, or sensitivity to sound. Pt states she has felt nauseated and vomited x2 with this headache. She describes the pain as constant pounding and currently rates her discomfort at a 8 out of 10 on the pain scale. Review of Systems Review of Systems Constitutional: Denies fever or chills [] Eyes: Denies change in visual acuity, redness, or eye pain [] HENT: Denies nasal congestion or sore throat [] Respiratory: Denies cough or shortness of breath [] Cardiovascular: No additional information not addressed in HPI [] GI: Denies abdominal pain, nausea, vomiting, bloody stools or diarrhea [] : Denies dysuria or hematuria [] Musculoskeletal: Denies back pain or joint pain [] Integument: Denies rash or skin lesions [] Neurologic: Denies headache, focal weakness or sensory changes [] Endocrine: Denies polyuria or polydipsia [] All other systems were reviewed and found to be within normal limits, except as documented in this note. Current Medications Current Medications Current Medications Medications (Trade) Dose Ordered Sig/Edgar Start Time Stop Time Status Last Admin Dose Admin Dexamethasone Sodium Phosphate (Decadron) 10 mg 1X ONCE 10/28/17 23:45 10/28/17 23:45 DC 10/28/17 23:35 10 MG Diphenhydramine HCl (Benadryl) 50 mg 1X ONCE 10/28/17 23:45 10/28/17 23:45 DC 10/28/17 23:35 50 MG Ondansetron HCl (Zofran) 4 mg 1X ONCE 10/28/17 23:45 10/28/17 23:45 DC 10/28/17 23:35 4 MG Sodium Chloride 1,000 ml @ 1,000 mls/hr 1X ONCE 10/28/17 23:30 10/28/17 23:45 DC 10/28/17 23:10 1,000 MLS/HR Allergies Allergies Allergies Coded Allergies Type Severity Reaction Last Updated Verified No Known Drug Allergies 09/22/16 No Physical Exam Physical Exam Constitutional: Well developed, well nourished, no acute distress, non-toxic appearance. [] HENT: Normocephalic, atraumatic, bilateral external ears normal, oropharynx moist, no oral exudates, nose normal. [] Eyes: PERRLA, EOMI, conjunctiva normal, no discharge. [] Neck: Normal range of motion, no tenderness, supple, no stridor. [] Cardiovascular:Heart rate regular rhythm, no murmur [] Lungs & Thorax: Bilateral breath sounds clear to auscultation [] Abdomen: Bowel sounds normal, soft, no tenderness, no masses, no pulsatile masses. [] Skin: Warm, dry, no erythema, no rash. [] Back: No tenderness, no CVA tenderness. [] Extremities: No tenderness, no cyanosis, no clubbing, ROM intact, no edema. [] Neurologic: Alert and oriented X 3, normal motor function, normal sensory function, no focal deficits noted. [] Psychologic: Affect normal, judgement normal, mood normal. [] Current Patient Data Vital Signs Vital Signs Date Time Temp Pulse Resp B/P (MAP) Pulse Ox O2 Delivery O2 Flow Rate FiO2 10/28/17 22:00 78 18 111/59 (76) 98 Room Air Lab Values Laboratory Tests Test 10/28/17 22:55 Urine Test Positive (NEG) EKG EKG [] Radiology/Procedures Radiology/Procedures [] Course & Med Decision Making Course & Med Decision Making Pertinent Labs and Imaging studies reviewed. (See chart for details) [] Dragon Disclaimer Dragon Disclaimer This electronic medical record was generated, in whole or in part, using a voice recognition dictation system. Departure Departure Impression: Primary Impression: Headache Disposition: 01 HOME, SELF-CARE Condition: STABLE Referrals: CASE ARECHIGA Jr, MD (PCP) Patient Instructions: General Headache Without Cause, [id number] Additional Instructions: Continue taking your home meds as prescribed for relief of your headaches. Follow-up with your primary care doctor for further evaluation and treatment of your chronic headaches. Return to the emergency room if your symptoms worsen. Problem Qualifiers Primary Impression: Headache Headache type: unspecified Headache chronicity pattern: unspecified pattern Intractability: not intractable Qualified Codes: R51 - Headache ASHLEY BALDWIN [employer] Oct 28, 2017 23:42
[2017-10-28] MEDS ORDERED: diphenhydrAMINE 50 MG/ML VIAL IVP ONE (23:45)
[2017-10-28] MEDS ORDERED: DEXAMETHASONE SOD PHOS 20 MG/5 ML VIAL. IV ONE (23:45)
[2017-10-28] MEDS ORDERED: ONDANSETRON PF 4 MG/2 ML VIAL. IV ONE (23:45)
== END 2017-10-28 23:45 | disposition home or self-care (01) ==
LOC: ER 21:38
DX: O26.893 Other specified pregnancy related conditions, third trimester (principal); R51 Headache; O21.9 Vomiting of pregnancy, unspecified; O99.513 Diseases of the respiratory system complicating pregnancy, third trimester; J45.909 Unspecified asthma, uncomplicated; Z3A.28 28 weeks gestation of pregnancy
CPT/HCPCS: 81025; 96361; 96374; 96375; 99284; J1100; J1200; J2405; J7030

== ENCOUNTER 2017-11-22 13:25 | Emergency (ER) | payer OTHER ==
[~2017-11-22] VITALS: Ht 157.5 cm; Wt 89.8 kg
[2017-11-22] MEDS ORDERED: diphenhydrAMINE HCL 25 MG CAPSULE PO ONE (14:00)
[2017-11-22] MEDS ORDERED: IV NORMAL SALINE 1000ML BAG 1,000 ML IV ONE (14:00)
[2017-11-22] MEDS ORDERED: ONDANSETRON PF 4 MG/2 ML VIAL. IV ONE (14:00)
[2017-11-22] MEDS ORDERED: methylPREDNISolone SOD SUCC PF 125 MG/2 ML VIAL. IV ONE (14:00)
--- NOTE | 2017-11-22 14:24 | PHYS DOC ---
Past Medical History Past Medical History: Asthma, Sciatica Past Surgical History: No Surgical History Alcohol Use: None Drug Use: None Adult General Chief Complaint Chief Complaint: HEADACHE HPI HPI Patient is a 22 year old F who presents with migraine headache. Patient has history of headaches. She is currently 9 months . She reports her doctor put her on Fioricet with codeine. She has taken this without relief. This headache started 2 days ago. She reports nausea without vomiting. She was here approximately one month ago for same symptoms and got relief with IV fluids and a migraine cocktail. She denies any change in character. She denies any blurred or double vision. Review of Systems Review of Systems Constitutional: Denies fever or chills [] Eyes: Denies change in visual acuity Respiratory: Denies cough or shortness of breath [] Cardiovascular: No additional information not addressed in HPI [] GI: Denies abdominal pain, vomiting. Reports nausea : Denies dysuria or hematuria [] Integument: Denies rash or skin lesions [] Neurologic: Reports headache. Denies focal weakness or sensory changes [] All other systems were reviewed and found to be within normal limits, except as documented in this note. Current Medications Current Medications Current Medications Medications (Trade) Dose Ordered Sig/Edgar Start Time Stop Time Status Last Admin Dose Admin Diphenhydramine HCl (Benadryl) 50 mg 1X ONCE 11/22/17 14:00 11/22/17 14:03 DC 11/22/17 14:29 50 MG Methylprednisolone Sodium Succinate (SOLU-Medrol 125MG VIAL) 125 mg 1X ONCE 11/22/17 14:00 11/22/17 14:04 DC 11/22/17 14:26 125 MG Ondansetron HCl (Zofran) 4 mg 1X ONCE 11/22/17 14:00 11/22/17 14:04 DC 11/22/17 14:28 4 MG Sodium Chloride 1,000 ml @ 1,000 mls/hr 1X ONCE 11/22/17 14:00 11/22/17 14:59 DC 11/22/17 14:26 1,000 MLS/HR Allergies Allergies Allergies Coded Allergies Type Severity Reaction Last Updated Verified No Known Drug Allergies 11/22/17 No Physical Exam Physical Exam Constitutional: Well developed, well nourished, no acute distress, non-toxic appearance. [] HENT: Normocephalic, atraumatic Eyes: PERRLA, EOMI, conjunctiva normal, no discharge. [] Neck: Normal range of motion, no tenderness, supple, no stridor. [] Cardiovascular:Heart rate regular rhythm, no murmur [] Lungs & Thorax: Bilateral breath sounds clear to auscultation [] Skin: Warm, dry, no erythema, no rash. [] Neurologic: Alert and oriented X 3, normal motor function, normal sensory function, no focal deficits noted. [] Psychologic: Affect normal, judgement normal, mood normal. [] Current Patient Data Vital Signs Vital Signs Date Time Temp Pulse Resp B/P (MAP) Pulse Ox O2 Delivery O2 Flow Rate FiO2 11/22/17 15:27 96 16 100 11/22/17 13:25 97.3 134/64 (87) Room Air 97.3 EKG EKG [] Radiology/Procedures Radiology/Procedures [] Course & Med Decision Making Course & Med Decision Making Pertinent Labs and Imaging studies reviewed. (See chart for details) Patient reports this is typical of her previous migraines. Plan: Home to rest, follow-up with PCP, return precautions reviewed Dragon Disclaimer Dragon Disclaimer This electronic medical record was generated, in whole or in part, using a voice recognition dictation system. Departure Departure Impression: Primary Impression: Headache Additional Impression: Disposition: 01 HOME, SELF-CARE Condition: GOOD Referrals: CASE SHAW Jr, MD (PCP) Patient Instructions: Epidural Blood Patching in Spinal Headache Problem Qualifiers Primary Impression: Headache Headache type: unspecified Headache chronicity pattern: acute headache Intractability: not intractable Qualified Codes: R51 - Headache Additional Impression: Weeks of gestation: 37 weeks Qualified Codes: Z3A.37 - 37 weeks gestation of DURGA MERCADO [employer] Nov 22, 2017 14:24
[2017-11-22 15:27] VITALS: BP 128/76
== END 2017-11-22 15:29 | disposition home or self-care (01) ==
LOC: ER 13:25
DX: O26.893 Other specified pregnancy related conditions, third trimester (principal); R51 Headache; O99.513 Diseases of the respiratory system complicating pregnancy, third trimester; J45.909 Unspecified asthma, uncomplicated; Z3A.37 37 weeks gestation of pregnancy
CPT/HCPCS: 96374; 96375; 99284; J2405; J2930; J7030; Q0163

== ENCOUNTER 2017-12-12 21:50 | Observation (INO) | payer OTHER ==
[2017-12-12] MEDS ORDERED: ONDANSETRON PF 4 MG/2 ML VIAL. IV PRN (22:00)
[2017-12-12] MEDS ORDERED: ACETAMINOPHEN 325 MG TABLET. PO PRN (22:00)
[2017-12-12] MEDS: IV RINGERS,LACTATED 1000ML 1,000 ML IV PRN ×2 (22:34→23:45)
[2017-12-12 22:36] LABS: AMNIO PT NEGATIVE
[2017-12-12 23:10] LABS: BILIRUBIN,URINE NEGATIVE (NEG); CLARITY,URINE CLEAR; COLOR,URINE YELLOW; NITRITE,URINE NEGATIVE (NEG); PROTEIN,URINE NEGATIVE (NEG-TRACE)
[2017-12-12 23:15] LABS: BACTERIA,URINE FEW /HPF (0-FEW); RBC,URINE 0 /HPF (0-2); SQUAMOUS EPITHELIAL CELL,UR MOD /LPF
[2017-12-12 23:17] LABS: BARBITURATES POS (NEG); BENZODIAZEPINES NEG (NEG); CANNABINOIDS NEG (NEG); COCAINE NEG (NEG); METHADONE NEG (NEG); OPIATES POS (NEG); PHENCYCLIDINE NEG (NEG)
[2017-12-12 23:19] LABS: AMPHETAMINE/METHAMPHETAMINE NEG (NEG)
[2017-12-13] MEDS: IV RINGERS,LACTATED 1000ML 1,000 ML IV PRN (01:05)
[2017-12-13] MEDS ORDERED: hydrOXYzine PAMOATE 25 MG CAPSULE PO PRN (01:15)
[2017-12-13] MEDS ORDERED: NIFEdipine 10 MG CAPSULE PO PRN (01:15)
[2017-12-13 01:16] VITALS: BP 120/69
[2017-12-13] MEDS ORDERED: NAPR-514 PO (09:30)
[2017-12-13] MEDS ORDERED: HYDR-971 PO (09:30)
--- NOTE | 2017-12-13 09:33 | PDOC ---
BRIEF OPERATIVE NOTE Date: Dec 13, 2017 Pre-Op Diagnosis Desires permanent sterilization Post-Op Diagnosis Same Procedure Performed Lap BTL with filshie clips Surgeon Ian Anesthesia Type: General Blood Loss 10cc Complications None JOSE SEPULVEDA MD Dec 13, 2017 09:33
== END 2017-12-13 09:30 | disposition home or self-care (01) ==
LOC: 3 SO LND 21:50
PROVIDERS: ADMIT Specialist; ATTEND Specialist
DX: O62.9 Abnormality of forces of labor, unspecified (principal); Z3A.33 33 weeks gestation of pregnancy
CPT/HCPCS: 36415; 80307; 81001; 84112; 87086; G0378; G0379; Q0177; J7120; G0479

== ENCOUNTER 2018-01-22 05:18 | Inpatient (IN) | payer OTHER ==
[~2018-01-22] VITALS: Ht 157.5 cm; Wt 88.5 kg
[~2018-01-22 05:18] MED LIST changes: +HYDR-3164 PO; -HYDR-971 PO; +NAPR-514 PO; -OXYC-323 PO; +OXYC1TAB15 PO
[2018-01-22] MEDS ORDERED: LIDOCAINE 1% PF 30 ML VIAL. INJ PRN (05:30)
[2018-01-22] MEDS ORDERED: CITRIC ACID/SODIUM CITRATE 30 ML SOLUTION. PO PRN (05:30)
[2018-01-22] MEDS ORDERED: ACETAMINOPHEN 325 MG TABLET. PO PRN ×2 (05:30→17:00)
[2018-01-22] MEDS ORDERED: fentaNYL PF VIAL 100 MCG/2 ML VIAL IV PRN ×2 (05:30)
[2018-01-22] MEDS ORDERED: 0.9 % SODIUM CHLORIDE 10 ML DISP.SYRIN. IV PRN ×2 (05:30→17:00)
[2018-01-22] MEDS ORDERED: ONDANSETRON PF 4 MG/2 ML VIAL. IV PRN (05:30)
[2018-01-22] MEDS ORDERED: OXYTOCIN 30 UNIT/500 ML PREMIX 500 ML IV PRN ×3 (05:30→17:00)
[2018-01-22] MEDS ORDERED: BUTORPHANOL 2 MG/ML VIAL. IV PRN (05:30)
[2018-01-22] MEDS ORDERED: TERBUTALINE 1 MG/ML VIAL. SQ PRN (05:30)
[2018-01-22 05:39] VITALS: BP 129/76
[2018-01-22] MEDS: IV RINGERS,LACTATED 1000ML 1,000 ML IV SCH ×2 (05:58→11:43)
[2018-01-22 06:28] LABS: AMPHETAMINE/METHAMPHETAMINE NEG (NEG); BARBITURATES NEG (NEG); BENZODIAZEPINES NEG (NEG); CANNABINOIDS NEG (NEG); COCAINE NEG (NEG); METHADONE NEG (NEG); OPIATES NEG (NEG); PHENCYCLIDINE NEG (NEG)
[2018-01-22 06:33] LABS: BILIRUBIN,URINE NEGATIVE (NEG); CLARITY,URINE CLEAR; COLOR,URINE YELLOW; NITRITE,URINE NEGATIVE (NEG); PROTEIN,URINE NEGATIVE (NEG-TRACE)
[2018-01-22 06:44] LABS: BASO % 0 % (0-3); EOS # 0.1 x10^3/uL (0.0-0.7); EOS % 1 % (0-3); HEMATOCRIT 34.2 % (36.0-47.0); HEMOGLOBIN 11.4 g/dL (12.0-15.5); LYMPH # 2.5 x10^3/uL (1.0-4.8); LYMPH % 24 % (24-48); MEAN CORPUSCULAR HEMOGLOBIN 28 pg (25-35); MEAN CORPUSCULAR HGB CONC 33 g/dL (31-37); MEAN CORPUSCULAR VOLUME 84 fL (79-100); MONO # 0.9 x10^3/uL (0.0-1.1); MONO % 9 % (0-9); NEUT # 6.8 x10^3uL (1.8-7.7); NEUT % 66 % (31-73); PLATELET COUNT 216 x10^3/uL (140-400); RED BLOOD COUNT 4.05 x10^6/uL (3.50-5.40); RED CELL DISTRIBUTION WIDTH 15.5 % (11.5-14.5); WHITE BLOOD COUNT 10.3 x10^3/uL (4.0-11.0)
[2018-01-22 06:54] LABS: SQUAMOUS EPITHELIAL CELL,UR FEW /LPF
[2018-01-22 06:55] LABS: BACTERIA,URINE 0 /HPF (0-FEW); RBC,URINE 0 /HPF (0-2)
[2018-01-22] MEDS ORDERED: BUPIVACAINE MPF 0.25% 30 ML VIAL. EPID PRN (11:15)
[2018-01-22] MEDS ORDERED: fentaNYL PF VIAL 100 MCG/2 ML VIAL EPI PRN (11:15)
[2018-01-22] MEDS ORDERED: NALOXONE 0.4 MG/ML VIAL. IV PRN (11:15)
[2018-01-22] MEDS ORDERED: ROPIVacaine 0.2% IN 0.9%NACL PF 40 MG/20 ML DISP.SYRIN. EPID PRN (11:15)
[2018-01-22] MEDS: L&D EPIDURAL SYRINGE 50 ML EPID PRN ×2 (11:42→13:49)
[2018-01-22] MEDS ORDERED: ROPIVacaine 0.2% IN 0.9%NACL PF 40 MG/20 ML DISP.SYRIN. ONE (13:00)
--- NOTE | 2018-01-22 16:52 | PDOC1 ---
OB - History Hx of Present Care: Good Care Ultrasounds: Normal mid trimester US Obstetrical Complications: None Medical Complications: None Past Family/Social History * Past Medical, Surgical, Family and Obstetric Histories reviewed from chart. Blood Type: O+ Rubella: Immune RPR/VDRL: Negative GBS Status: Negative HBsAG: Negative OB - Chief Complaint & HPI Date of Admission: Date of Admission: Jan 22, 2018 at 05:18 Chief Complaint/History : 3 Para: 1 EDC: Jan 29, 2018 Reason for admission: induction of labor Admission Nurse Assessment Rev: Yes OB - Admission Exam Physical Exam Vitals: VS - Last 72 Hours, by Label Date Time Temp Pulse Resp B/P (MAP) Pulse Ox O2 Delivery O2 Flow Rate FiO2 01/22/18 13:49 20 99 Room Air 01/22/18 12:12 99 01/22/18 11:42 20 99 Room Air 01/22/18 05:39 98.8 92 18 129/76 (93) 97 Room Air 98.8 Heart: Regular Rate Lungs: Clear Abdomen: Gravid Extremities: Normal Pulses, No tenderness or swelling Cervical Dilatation: 2cm Effacement: 50% Station: -2 Membranes: Intact Amniotic Fluid: Clear Heart Rate: Normal Accelerations: Accelerations Present Decelerations: No decelerations Short Term Variability: Present Assessment/Plan Assessment/Plan TIUP Induction ACS JOSE SEPULVEDA MD Jan 22, 2018 16:52
--- NOTE | 2018-01-22 16:54 | PDOC ---
VAGINAL DELIVERY DATE DATE: 01/22/18 TIME: 16:51 : 3 Para: 1 EDC: Jan 29, 2018 VAGINAL DELIVERY: VTX VACCUM ASSISTED: No PLACENTA: Spontaneous SEX: Male WEIGHT 8#4oz Nuchal Cord: No Amniotic Fluid: Clear EPISIOTOMY: No EXTENSION: No EBL 300cc COMPLICATIONS None CONDITION Stable Signs of Intrauterine Infectio: None Shoulder Dystocia: No DIAGNOSIS TIJOSE Duggan MD Jan 22, 2018 16:54
[2018-01-22] MEDS ORDERED: SIMETHICONE 80 MG TAB.CHEW PO PRN (17:00)
[2018-01-22] MEDS ORDERED: HYDROCORTISONE 1% TOPICAL OINTMENT 30GM TUBE. TP PRN (17:00)
[2018-01-22] MEDS ORDERED: diphenhydrAMINE HCL 25 MG CAPSULE PO PRN (17:00)
[2018-01-22] MEDS ORDERED: PHENYLEPH/MINERAL OIL/PETROLAT RECTAL OINTMENT 28GM TUBE. RC PRN (17:00)
[2018-01-22] MEDS ORDERED: MAGNESIUM HYDROXIDE 2,400 MG/30 ML ORAL.SUSP. PO PRN (17:00)
[2018-01-22] MEDS ORDERED: ZOLPIDEM 5 MG TABLET. PO PRN (17:00)
[2018-01-22] MEDS ORDERED: MAG HYDROX/ALUMINUM HYD/SIMETH 30 ML ORAL.SUSP PO PRN (17:00)
[2018-01-22] MEDS ORDERED: BENZOCAINE 20% TOPICAL AEROSOL SPRAY 57GM CAN. TP PRN (17:00)
[2018-01-22] MEDS ORDERED: FERROUS SULFATE 325 MG TABLET. PO SCH (17:00)
[2018-01-22] MEDS ORDERED: IBUPROFEN 400 MG TABLET. PO PRN (17:00)
[2018-01-22 19:58] VITALS: BP 111/70
[2018-01-22] MEDS ORDERED: KETOROLAC 30 MG/ML VIAL. IV PRN (20:15)
[2018-01-22] MEDS: HYDROcodone/APAP 5/325MG 1 TAB TABLET PO PRN (20:38)
[2018-01-22 23:00] VITALS: BP 111/70
[2018-01-23] MEDS: IBUPROFEN 400 MG TABLET. PO PRN ×4 (01:05→23:58)
[2018-01-23] MEDS: HYDROcodone/APAP 5/325MG 1 TAB TABLET PO PRN ×4 (02:09→19:40)
[2018-01-23 06:14] VITALS: BP 93/60
[2018-01-23 07:35] VITALS: BP 91/50
[2018-01-23 12:00] VITALS: BP 108/68
--- NOTE | 2018-01-23 13:53 | PDOC ---
OB Progress Note Date of Service 01/23/18 Time of Evaluation 1350 Notes Pt. feeling well. She c/o neck pain and lower abd pain. Recommend heating pad and increase PO hydration. Lab Laboratory Tests Test 01/22/18 05:22 01/22/18 06:00 01/23/18 08:40 White Blood Count 10.3 x10^3/uL (4.0-11.0) Red Blood Count 4.05 x10^6/uL (3.50-5.40) Hemoglobin 11.4 g/dL (12.0-15.5) Hematocrit 34.2 % (36.0-47.0) 32.9 % (36.0-47.0) Mean Corpuscular Volume 84 fL (79-100) Mean Corpuscular Hemoglobin 28 pg (25-35) Mean Corpuscular Hemoglobin Concent 33 g/dL (31-37) Red Cell Distribution Width 15.5 % (11.5-14.5) Platelet Count 216 x10^3/uL (140-400) Neutrophils (%) (Auto) 66 % (31-73) Lymphocytes (%) (Auto) 24 % (24-48) Monocytes (%) (Auto) 9 % (0-9) Eosinophils (%) (Auto) 1 % (0-3) Basophils (%) (Auto) 0 % (0-3) Neutrophils # (Auto) 6.8 x10^3uL (1.8-7.7) Lymphocytes # (Auto) 2.5 x10^3/uL (1.0-4.8) Monocytes # (Auto) 0.9 x10^3/uL (0.0-1.1) Eosinophils # (Auto) 0.1 x10^3/uL (0.0-0.7) Basophils # (Auto) 0.0 x10^3/uL (0.0-0.2) Treponema pallidum Antibody Nonreactive (Nonreactive) Urine Collection Type Unknown Urine Color Yellow Urine Clarity Clear Urine pH 7.0 Urine Specific [place] 1.010 Urine Protein Negative mg/dL (NEG-TRACE) Urine Glucose (UA) Negative mg/dL (NEG) Urine Ketones (Stick) Negative mg/dL (NEG) Urine Blood Negative (NEG) Urine Nitrite Negative (NEG) Urine Bilirubin Negative (NEG) Urine Urobilinogen Dipstick 1.0 mg/dL (0.2 mg/dL) Urine Leukocyte Esterase Small (NEG) Urine RBC 0 /HPF (0-2) Urine WBC 1-4 /HPF (0-4) Urine Squamous Epithelial Cells Few /LPF Urine Bacteria 0 /HPF (0-FEW) Urine Opiates Screen Neg (NEG) Urine Methadone Screen Neg (NEG) Urine Barbiturates Neg (NEG) Urine Phencyclidine Screen Neg (NEG) Urine Amphetamine/Methamphetamine Neg (NEG) Urine Benzodiazepines Screen Neg (NEG) Urine Cocaine Screen Neg (NEG) Urine Cannabinoids Screen Neg (NEG) Urine Ethyl Alcohol Neg (NEG) Laboratory Tests Test 01/23/18 08:40 Hematocrit 32.9 % (36.0-47.0) Medications Current Medications Sodium Chloride (Normal Saline Flush) 3 ml QSHIFT PRN IV AFTER MEDS AND BLOOD DRAWS; Start 01/22/18 at 05:30 Ringer's Solution 1,000 ml @ 125 mls/hr Q8H IV Last administered on at 11:43; Start 01/22/18 at 05:22 Butorphanol Tartrate (Stadol) 2 mg PRN Q1HR PRN IV Severe labor pain; Start at 05:30 Fentanyl Citrate (Fentanyl 2ml Vial) 50 mcg PRN Q30MIN PRN IV Mild to moderate pain; Start 01/22/18 at 05:30 Fentanyl Citrate (Fentanyl 2ml Vial) 100 mcg PRN Q30MIN PRN IV Severe pain; Start 01/22/18 at 05:30 Acetaminophen (Tylenol) 650 mg PRN Q6HRS PRN PO MILD PAIN / TEMP Last administered on 01/22/18at 19:21; Start 01/22/18 at 05:30 Ondansetron HCl (Zofran) 4 mg PRN Q4HRS PRN IV NAUSEA/VOMITING 1ST CHOICE; Start 01/22/18 at 05:30 Citric Acid/ Sodium Citrate (Bicitra) 30 ml 1X PRN PRN PO DYSPEPSIA; Start 11/30 at 05:30; Stop 01/23/18 at 05:29; Status DC Terbutaline Sulfate (Brethine) 0.25 mg 1X PRN PRN SQ SEE COMMENTS; Start 01/22 at 05:30; Stop 01/23/18 at 05:29; Status DC Lidocaine HCl (Xylocaine 1% Pf 30ml Vial) 30 ml 1X PRN PRN INJ SEE COMMENTS; Start 01/22/18 at 05:30; Stop 01/24/18 at 05:29 Oxytocin/Sodium Chloride 500 ml @ 0 mls/hr CONT PRN IV SEE I/O RECORD Last administered on 01/22/18at 06:28; Start 01/22/18 at 05:30 Oxytocin/Sodium Chloride 500 ml @ 0 mls/hr CONT PRN PRN IV Post delivery bleeding; Start 01/22/18 at 05:30 Ibuprofen (Motrin) 800 mg PRN Q6HRS PRN PO MODERATE PAIN Last administered on 01/23/18at 11:02; Start 01/22/18 at 05:30 Naloxone HCl (Narcan) 0.04 mg PRN Q1MIN PRN IV SEE COMMENTS; Start 01/22/18 at 11:15 Fentanyl Citrate (Fentanyl 2ml Vial) 100 mcg PRN 1X PRN EPI FOR ANESTHESIA; Start 01/22/18 at 11:15; Stop 01/23/18 at 11:14; Status DC Bupivacaine HCl (Sensorcaine Mpf 0.25%) 10 ml PRN 1X PRN EPID FOR ANESTHESIA; Start 01/22/18 at 11:15; Stop 01/23/18 at 11:14; Status DC Ropivacaine/ Sodium Chloride (ROPIVacaine 0.2% - 0.9%NACL PF) 40 mg 1X PRN PRN EPID PER ANESTHESIA; Start 01/22/18 at 11:15; Stop 01/23/18 at 11:14; Status DC Ropivacaine/ Fentanyl/NS 50 ml @ 14 mls/hr CONT PRN EPID PAIN Last administered on 01/22/18at 13:49; Start 01/22/18 at 11:15 Sodium Chloride (Normal Saline Flush) 10 ml QSHIFT PRN IV AFTER MEDS AND BLOOD DRAWS; Start 01/22/18 at 17:00 Oxytocin/Sodium Chloride 500 ml @ 62.5 mls/hr CONT PRN IV SEE I/O RECORD; Start 01/22/18 at 17:00; Stop 01/23/18 at 00:59; Status DC Acetaminophen (Tylenol) 650 mg PRN Q6HRS PRN PO MILD PAIN / TEMP; Start at 17:00 Ibuprofen (Motrin) 800 mg PRN Q8HRS PRN PO INFLAMMATION/PAIN PREVENTION Last administered on 01/22/18at 18:06; Start 01/22/18 at 17:00 Magnesium Hydroxide (Milk Of Magnesia) 2,400 mg PRN DAILY PRN PO CONSTIPATION; Start 01/22/18 at 17:00 Al Hydroxide/Mg Hydroxide (Mylanta Plus Xs) 30 ml PRN Q4HRS PRN PO HEARTBURN / GAS; Start 01/22/18 at 17:00 Simethicone (Gas-X) 80 mg PRN AFTMEALHC PRN PO GAS / BLOATING; Start 01/22/18 at 17:00 Diphenhydramine HCl (Benadryl) 25 mg PRN Q6HRS PRN PO ITCHING; Start 01/22/18 at 17:00 Benzocaine (Americaine) 1 spray PRN QID PRN TP TOPICAL PAIN; Start 01/22/18 at 17:00 Phenyleph/Shark Oil/Min Oil/Petrol (Preparation H) 1 chauncey PRN QID PRN RC RECTAL PAIN; Start 01/22/18 at 17:00 Hydrocortisone (Cortaid) 1 chauncey PRN QID PRN TP PERINEAL PAIN; Start 01/22/18 at 17:00 Ferrous Sulfate (Feosol) 325 mg BIDWMEALS PO ; Start 01/22/18 at 17:00 Zolpidem Tartrate (Ambien) 5 mg PRN QHS PRN PO INSOMNIA, MAY REPEAT X1; Start 01/22/18 at 17:00 Info (Do NOT chart on this placeholder) 1 ea 1X PRN PRN MC SEE COMMENTS; Start 01/22/18 at 17:00 Ketorolac Tromethamine (Toradol 30mg Vial) 30 mg PRN Q6HRS PRN IV PAIN Last administered on 01/22/18at 20:22; Start 01/22/18 at 20:15; Stop 01/22/18 at 20 :32; Status DC Acetaminophen/ Hydrocodone Bitart (Lortab 5/325) 1 tab PRN Q6HRS PRN PO PAIN Last administered on 01/23/18at 13:06; Start 01/22/18 at 20:30 Influenza Virus Vaccine (Afluria Trivalent [id number] Syringe) 0.5 ml ONCE ONCE VAX IM ; Start 01/23/18 at 09:00; Stop 01/23/18 at 09:01; Status DC Ropivacaine/ Sodium Chloride (ROPIVacaine 0.2% - 0.9%NACL PF) 40 mg STK-MED ONCE .ROUTE ; Start 01/22/18 at 13:00; Stop 01/23/18 at 09:17; Status DC Active Scripts Active [place] 5-325 Tablet (Acetaminophen/Hydrocodone Bitart) 1 Each Tablet 1 Tab PO PRN Q6HRS PRN Naproxen 500 Mg Tablet 500 Mg PO BID Cephalexin 500 Mg Tablet 1 Tab PO BID Flagyl (Metronidazole) 500 Mg Tablet 1 Tab PO BID Tablet (Pnv Cmb#95/Ferrous Fumarate/Fa) 1 Each Tablet 1 Tab PO DAILY Cyclobenzaprine Hcl 10 Mg Tablet 1 Tab PO TID Medrol (Methylprednisolone) 4 Mg Tab.ds.pk 1 Pkg PO UD [place] 5-325 Tablet (Acetaminophen/Hydrocodone Bitart) 1 Each Tablet 1 Tab PO PRN Q6HRS PRN Percocet 5-325 Mg Tablet (Oxycodone/Acetaminophen) 1 Each Tablet 1 Tab PO PRN Q6HRS PRN Ibuprofen 800 Mg Tablet 800 Mg PO PRN Q6HRS PRN Colace (Docusate Sodium) 100 Mg Capsule 100 Mg PO BID Exam Abd: soft, non tender, fundus firm Assessment PPD#1 s/p Plan of Care: Continue current Tx, Mgmt CASE SHAW Jr, MD Jan 23, 2018 13:53
[2018-01-23 16:05] VITALS: BP 125/91
[2018-01-23] MEDS ORDERED: IBUPROFEN 200 MG TABLET. PO PRN (17:15)
[2018-01-23 22:04] VITALS: BP 109/76
[2018-01-24] MEDS: HYDROcodone/APAP 5/325MG 1 TAB TABLET PO PRN ×4 (04:31→20:31)
[2018-01-24 04:32] VITALS: BP 107/76
[2018-01-24] MEDS: IBUPROFEN 400 MG TABLET. PO PRN ×2 (06:00→19:40)
--- NOTE | 2018-01-24 10:04 | PDOC ---
Date and Time Late entry. Seen at 08:20 2 days after epidural pt c/o positional headache/neck ache. No note of dural puncture during placement. No fever, diploplia or nausea. D/w patient- her DAVIS is mild and she thinks she will be OK at home. I discussed blood patch should DAVIS not resolve shortly. She understands. Instructed to call L&D and they will contact us should she need a blood patch. Current Medications Current Medications Sodium Chloride (Normal Saline Flush) 3 ml QSHIFT PRN IV AFTER MEDS AND BLOOD DRAWS; Start 01/22/18 at 05:30; Stop 01/23/18 at 16:42; Status DC Ringer's Solution 1,000 ml @ 125 mls/hr Q8H IV Last administered on at 11:43; Start 01/22/18 at 05:22; Stop 01/23/18 at 16:42; Status DC Butorphanol Tartrate (Stadol) 2 mg PRN Q1HR PRN IV Severe labor pain; Start at 05:30 Fentanyl Citrate (Fentanyl 2ml Vial) 50 mcg PRN Q30MIN PRN IV Mild to moderate pain; Start 01/22/18 at 05:30; Stop 01/23/18 at 16:42; Status DC Fentanyl Citrate (Fentanyl 2ml Vial) 100 mcg PRN Q30MIN PRN IV Severe pain; Start 01/22/18 at 05:30; Stop 01/23/18 at 16:42; Status DC Acetaminophen (Tylenol) 650 mg PRN Q6HRS PRN PO MILD PAIN / TEMP Last administered on 01/22/18at 19:21; Start 01/22/18 at 05:30 Ondansetron HCl (Zofran) 4 mg PRN Q4HRS PRN IV NAUSEA/VOMITING 1ST CHOICE; Start 01/22/18 at 05:30 Citric Acid/ Sodium Citrate (Bicitra) 30 ml 1X PRN PRN PO DYSPEPSIA; Start 11/30 at 05:30; Stop 01/23/18 at 05:29; Status DC Terbutaline Sulfate (Brethine) 0.25 mg 1X PRN PRN SQ SEE COMMENTS; Start 01/22 at 05:30; Stop 01/23/18 at 05:29; Status DC Lidocaine HCl (Xylocaine 1% Pf 30ml Vial) 30 ml 1X PRN PRN INJ SEE COMMENTS; Start 01/22/18 at 05:30; Stop 01/23/18 at 16:42; Status DC Oxytocin/Sodium Chloride 500 ml @ 0 mls/hr CONT PRN IV SEE I/O RECORD Last administered on 01/22/18at 06:28; Start 01/22/18 at 05:30; Stop 01/23/18 at 16 :42; Status DC Oxytocin/Sodium Chloride 500 ml @ 0 mls/hr CONT PRN PRN IV Post delivery bleeding; Start 01/22/18 at 05:30; Stop 01/23/18 at 16:42; Status DC Ibuprofen (Motrin) 800 mg PRN Q6HRS PRN PO MODERATE PAIN Last administered on 01/23/18at 11:02; Start 01/22/18 at 05:30; Stop 01/23/18 at 16:39; Status DC Naloxone HCl (Narcan) 0.04 mg PRN Q1MIN PRN IV SEE COMMENTS; Start 01/22/18 at 11:15 Fentanyl Citrate (Fentanyl 2ml Vial) 100 mcg PRN 1X PRN EPI FOR ANESTHESIA; Start 01/22/18 at 11:15; Stop 01/23/18 at 11:14; Status DC Bupivacaine HCl (Sensorcaine Mpf 0.25%) 10 ml PRN 1X PRN EPID FOR ANESTHESIA; Start 01/22/18 at 11:15; Stop 01/23/18 at 11:14; Status DC Ropivacaine/ Sodium Chloride (ROPIVacaine 0.2% - 0.9%NACL PF) 40 mg 1X PRN PRN EPID PER ANESTHESIA; Start 01/22/18 at 11:15; Stop 01/23/18 at 11:14; Status DC Ropivacaine/ Fentanyl/NS 50 ml @ 14 mls/hr CONT PRN EPID PAIN Last administered on 01/22/18at 13:49; Start 01/22/18 at 11:15; Stop 01/23/18 at 16 :42; Status DC Sodium Chloride (Normal Saline Flush) 10 ml QSHIFT PRN IV AFTER MEDS AND BLOOD DRAWS; Start 01/22/18 at 17:00; Stop 01/23/18 at 16:42; Status DC Oxytocin/Sodium Chloride 500 ml @ 62.5 mls/hr CONT PRN IV SEE I/O RECORD; Start 01/22/18 at 17:00; Stop 01/23/18 at 00:59; Status DC Acetaminophen (Tylenol) 650 mg PRN Q6HRS PRN PO MILD PAIN / TEMP; Start at 17:00 Ibuprofen (Motrin) 800 mg PRN Q8HRS PRN PO INFLAMMATION/PAIN PREVENTION Last administered on 01/22/18at 18:06; Start 01/22/18 at 17:00; Stop 01/23/18 at 17 :11; Status DC Magnesium Hydroxide (Milk Of Magnesia) 2,400 mg PRN DAILY PRN PO CONSTIPATION; Start 01/22/18 at 17:00 Al Hydroxide/Mg Hydroxide (Mylanta Plus Xs) 30 ml PRN Q4HRS PRN PO HEARTBURN / GAS; Start 01/22/18 at 17:00 Simethicone (Gas-X) 80 mg PRN AFTMEALHC PRN PO GAS / BLOATING; Start 01/22/18 at 17:00 Diphenhydramine HCl (Benadryl) 25 mg PRN Q6HRS PRN PO ITCHING; Start 01/22/18 at 17:00 Benzocaine (Americaine) 1 spray PRN QID PRN TP TOPICAL PAIN; Start 01/22/18 at 17:00 Phenyleph/Shark Oil/Min Oil/Petrol (Preparation H) 1 chauncey PRN QID PRN RC RECTAL PAIN; Start 01/22/18 at 17:00 Hydrocortisone (Cortaid) 1 chauncey PRN QID PRN TP PERINEAL PAIN; Start 01/22/18 at 17:00 Ferrous Sulfate (Feosol) 325 mg BIDWMEALS PO ; Start 01/22/18 at 17:00; Stop 01/23/18 at 16:42; Status DC Zolpidem Tartrate (Ambien) 5 mg PRN QHS PRN PO INSOMNIA, MAY REPEAT X1; Start 01/22/18 at 17:00 Info (Do NOT chart on this placeholder) 1 ea 1X PRN PRN MC SEE COMMENTS; Start 01/22/18 at 17:00 Ketorolac Tromethamine (Toradol 30mg Vial) 30 mg PRN Q6HRS PRN IV PAIN Last administered on 01/22/18at 20:22; Start 01/22/18 at 20:15; Stop 01/22/18 at 20 :32; Status DC Acetaminophen/ Hydrocodone Bitart (Lortab 5/325) 1 tab PRN Q6HRS PRN PO PAIN Last administered on 01/24/18at 04:31; Start 01/22/18 at 20:30 Influenza Virus Vaccine (Afluria Trivalent [id number] Syringe) 0.5 ml ONCE ONCE VAX IM ; Start 01/23/18 at 09:00; Stop 01/23/18 at 09:01; Status DC Ropivacaine/ Sodium Chloride (ROPIVacaine 0.2% - 0.9%NACL PF) 40 mg STK-MED ONCE .ROUTE ; Start 01/22/18 at 13:00; Stop 01/23/18 at 09:17; Status DC Ibuprofen (Motrin) 600 mg PRN Q6HRS PRN PO INFLAMMATION; Start 01/23/18 at 17: 15 Ibuprofen (Motrin) 800 mg PRN Q6HRS PRN PO INFLAMMATION Last administered on at 06:00; Start 01/23/18 at 17:15 Active Scripts Active [place] 5-325 Tablet (Acetaminophen/Hydrocodone Bitart) 1 Each Tablet 1 Tab PO PRN Q6HRS PRN Naproxen 500 Mg Tablet 500 Mg PO BID Cephalexin 500 Mg Tablet 1 Tab PO BID Flagyl (Metronidazole) 500 Mg Tablet 1 Tab PO BID Tablet (Pnv Cmb#95/Ferrous Fumarate/Fa) 1 Each Tablet 1 Tab PO DAILY Cyclobenzaprine Hcl 10 Mg Tablet 1 Tab PO TID Medrol (Methylprednisolone) 4 Mg Tab.ds.pk 1 Pkg PO UD [place] 5-325 Tablet (Acetaminophen/Hydrocodone Bitart) 1 Each Tablet 1 Tab PO PRN Q6HRS PRN Percocet 5-325 Mg Tablet (Oxycodone/Acetaminophen) 1 Each Tablet 1 Tab PO PRN Q6HRS PRN Ibuprofen 800 Mg Tablet 800 Mg PO PRN Q6HRS PRN Colace (Docusate Sodium) 100 Mg Capsule 100 Mg PO BID Pertinent Labs/Test Laboratory Tests Test 01/23/18 08:40 Hematocrit 32.9 % (36.0-47.0) LAST VITALS Vital Signs Date Time Temp Pulse Resp B/P (MAP) Pulse Ox O2 Delivery O2 Flow Rate FiO2 01/24/18 07:39 Room Air 01/24/18 04:32 97.9 78 16 107/76 (98) 99 97.9 ROLAND UP MD Jan 24, 2018 10:04
[2018-01-24 10:20] VITALS: BP 104/74
--- NOTE | 2018-01-24 10:47 | PDOC ---
Provider Note Provider Note PPD #2 C/O headache Most likely spinal in nature VSS uterus [facility] JOSE SEPULVEDA MD Jan 24, 2018 10:47
[2018-01-24 16:30] VITALS: BP 109/74
[2018-01-24 22:00] VITALS: BP 114/88
[2018-01-25] MEDS: HYDROcodone/APAP 5/325MG 1 TAB TABLET PO PRN ×4 (00:15→14:57)
[2018-01-25 06:05] VITALS: BP 105/62
[2018-01-25] MEDS: IBUPROFEN 400 MG TABLET. PO PRN ×2 (06:12→16:26)
[2018-01-25 10:53] VITALS: BP 113/72
--- NOTE | 2018-01-25 15:52 | PDOC3 ---
OB DISCHARGE SUMMARY DATE OF ADMISSION: 01/22/18 DATE OF DISCHARGE: 01/25/18 REASON FOR ADMISSION: Induction of labor PROCEDURES: Ultrasound INTRAPARTUM PROCEDURES: Spontanous Vag Deliv, Others (Blood patch) OPERATIONS: None DISCHARGE DIAGNOSIS: Term Delivered DISCHARGE INFORMATION: Activity, Diet HOSPITAL COURSE Unremarkable CONDITION AT DISCHARGE Stable JOSE SEPULVEDA MD Jan 25, 2018 15:52
[2018-01-25] MEDS ORDERED: NAPR-514 PO (15:53)
[2018-01-25] MEDS ORDERED: HYDR-3164 PO (15:53)
== END 2018-01-25 17:37 | disposition home or self-care (01) | DRG 807 ==
LOC: 3 SO LND 05:18 → 3 NORTH 19:37
PROVIDERS: ADMIT Specialist; ATTEND Specialist
PROC: 10E0XZZ Delivery of Products of Conception, External Approach (ICD-10-PCS; principal; 2018-01-22)
DX: O80 Encounter for full-term uncomplicated delivery (principal); Z37.0 Single live birth; Z3A.00 Weeks of gestation of pregnancy not specified
CPT/HCPCS: 36415; 80307; 81001; 85014; 85025; 86592; 86850; 86900; 86901; 87086; 90471; 90756; J1885; J2590; J2795; J7120; Q2035

== ENCOUNTER 2019-10-14 21:01 | Observation (INO) | payer MEDICAID ==
[~2019-10-14] VITALS: Ht 157.5 cm; Wt 72.1 kg
[2019-10-14] MEDS ORDERED: IV RINGERS,LACTATED 1000ML 1,000 ML IV SCH (21:03)
[2019-10-14] MEDS ORDERED: ACETAMINOPHEN 500 MG TABLET PO PRN (21:15)
[2019-10-14 21:59] LABS: AMNIO PT NEGATIVE
== END 2019-10-14 22:35 | disposition home or self-care (01) ==
LOC: 3 SO LND 21:01
PROVIDERS: ADMIT Obstetrics & Gynecology; ATTEND Obstetrics & Gynecology
DX: O42.92 Full-term premature rupture of membranes, unspecified as to length of time between rupture and onset of labor (principal); Z3A.38 38 weeks gestation of pregnancy
CPT/HCPCS: 36415; 84112; G0378; G0379